=== PATIENT | male | born 1970 | race Caucasian/White ===

== ENCOUNTER 2024-12-30 08:44 | Emergency (ER) | payer MEDICAID ==
[~2024-12-30] VITALS: Ht 170.2 cm; Wt 68.0 kg
[2024-12-30 08:50] VITALS: O2SAT 99
[2024-12-30 09:15] LABS: BASOPHILS % 0.9 % (0.0-2.0); EOSINOPHILS % 2.3 % (0.0-5.0); HEMATOCRIT. 43.5 % (42.0-52.0); HEMOGLOBIN. 14.6 g/dL (14.0-18.0); LYMPHOCYTES % 41.5 % (20.0-50.0); MEAN PLATELET VOLUME 8.3 fl (7.4-10.4); MONOCYTES % 7.4 % (2.0-8.0); NEUTROPHILS % 47.9 % (40.0-76.0); PLATELET 250 x1000/uL (130-400); RED BLOOD CELL COUNT 4.71 mill/uL (4.7-6.1); RED CELL DISTRIBUTION WIDTH 13.4 % (11.6-14.6)
[2024-12-30 09:28] LABS: CREATININE 1.1 mg/dL (0.6-1.3); TROPONIN I HIGH SENSITIVITY < 4 ng/L (3.0-53)
[2024-12-30 09:29] LABS: UREA NITROGEN BLOOD 25 mg/dL (9-23)
[2024-12-30 09:30] LABS: ASPARTATE AMINOTRANSFERASE 30 IU/L (<34)
[2024-12-30 09:31] LABS: BILIRUBIN DIRECT 0.1 mg/dL (<=3.0); BILIRUBIN TOTAL 0.4 mg/dL (0.1-1.0); PROTEIN TOTAL 6.9 g/dL (6.0-8.3)
[2024-12-30 09:52] VITALS: TEMP 36.6
[2024-12-30] MEDS: SODIUM CHLORIDE 0.9% 1,000 ML IV ONE (09:54)
[2024-12-30] MEDS: ONDANSETRON HCL 4MG/2ML INJ IV ONE (09:54)
[2024-12-30] MEDS: KETOROLAC 15MG/ML VIAL IV ONE (09:55)
[2024-12-30 10:53] VITALS: TEMP 97.9
[2024-12-30] MEDS: ACETAMINOPHEN 325MG TABLET PO ONE (10:53)
[2024-12-30] MEDS: FAMOTIDINE 20MG TABLET PO ONE (10:53)
[2024-12-30] MEDS: IOHEXOL-300 100 ML BOTTLE ONE (11:02)
[2024-12-30 11:04] LABS: CLARITY URINE CLEAR (CLEAR); COLOR URINE YELLOW (YELLOW); GLUCOSE URINE NEGATIVE (NEGATIVE); KETONES URINE NEGATIVE (NEGATIVE); LEUKOCYTE ESTERASE URINE NEGATIVE (NEGATIVE); NITRITE URINE NEGATIVE (NEGATIVE); OCCULT BLOOD URINE NEGATIVE (NEGATIVE); PH URINE 6.0 (4.5-8.0); PROTEIN URINE NEGATIVE (NEGATIVE); SPECIFIC GRAVITY URINE 1.011 (1.005-1.030); UROBILINOGEN URINE 0.2 E.U./dL (0.2-1.0)
[2024-12-30] MEDS ORDERED: AMOX1TAB16 MT (11:34)
[2024-12-30] MEDS: AMOXICILLIN/POTASSIUM CLAVULANATE 875/125MG TAB PO ONE (12:02)
[2024-12-30 12:36] VITALS: BP 113/70; PULSE 60; RESP 12; O2SAT 99
== END 2024-12-30 12:41 | disposition home or self-care (01) ==
LOC: ER 08:44
DX: K57.92 Diverticulitis of intestine, part unspecified, without perforation or abscess without bleeding (principal)
CPT/HCPCS: 80076; 80048; 81003; 83690; 85025; 84484; 36415; 74177; 93005; 96361; 96374; 96375; 99285; Q9967; J1885; J2405; J7030; Z7610 ×2; A4606

== ENCOUNTER 2025-03-04 12:14 | Emergency (ER) | payer MEDICAID, OTHER ==
[~2025-03-04] VITALS: Ht 170.2 cm; Wt 69.0 kg
[~2025-03-04 12:14] MED LIST: AMOX1TAB16 MT
[2025-03-04 12:28] VITALS: O2SAT 99
[2025-03-04 13:06] LABS: CLARITY URINE CLEAR (CLEAR); COLOR URINE YELLOW (YELLOW); GLUCOSE URINE NEGATIVE (NEGATIVE); KETONES URINE NEGATIVE (NEGATIVE); LEUKOCYTE ESTERASE URINE NEGATIVE (NEGATIVE); NITRITE URINE NEGATIVE (NEGATIVE); OCCULT BLOOD URINE NEGATIVE (NEGATIVE); PH URINE 6.5 (4.5-8.0); PROTEIN URINE NEGATIVE (NEGATIVE); SPECIFIC GRAVITY URINE 1.005 (1.005-1.030); UROBILINOGEN URINE 0.2 E.U./dL (0.2-1.0)
[2025-03-04 15:11] LABS: BASOPHILS % 0.7 % (0.0-2.0); EOSINOPHILS % 1.5 % (0.0-5.0); HEMATOCRIT. 46.1 % (42.0-52.0); HEMOGLOBIN. 15.5 g/dL (14.0-18.0); LYMPHOCYTES % 40.9 % (20.0-50.0); MEAN PLATELET VOLUME 8.2 fl (7.4-10.4); MONOCYTES % 8.7 % (2.0-8.0); NEUTROPHILS % 48.2 % (40.0-76.0); PLATELET 217 x1000/uL (130-400); RED BLOOD CELL COUNT 4.98 mill/uL (4.7-6.1); RED CELL DISTRIBUTION WIDTH 13.4 % (11.6-14.6)
[2025-03-04 15:21] LABS: CREATININE 0.9 mg/dL (0.6-1.3)
[2025-03-04 15:22] LABS: UREA NITROGEN BLOOD 8 mg/dL (9-23)
[2025-03-04 15:24] LABS: ASPARTATE AMINOTRANSFERASE 27 IU/L (<34); BILIRUBIN DIRECT 0.2 mg/dL (<=3.0); BILIRUBIN TOTAL 0.6 mg/dL (0.1-1.0); PROTEIN TOTAL 7.1 g/dL (6.0-8.3)
[2025-03-04] MEDS ORDERED: IBUP-1455 MT (19:30)
[2025-03-04 20:45] VITALS: BP 143/90; PULSE 56; RESP 16; TEMP 36.6; O2SAT 99
[2025-03-06 14:08] LABS: CHLAMYDIA TRACHOMATIS NAA Negative (Negative); NEISSERIA GONORRHOEAE NAA Negative (Negative)
== END 2025-03-04 20:50 | disposition home or self-care (01) ==
LOC: ER 12:14
DX: N50.812 Left testicular pain (principal); R10.32 Left lower quadrant pain; R30.0 Dysuria; F10.90 Alcohol use, unspecified, uncomplicated; Y90.9 Presence of alcohol in blood, level not specified
CPT/HCPCS: 36415; 74176; 76870; 80048; 80076; 81003; 85025; 87491; 87591; 93976; 99284